=== PATIENT | female | born 1980 | race Caucasian/White ===

== ENCOUNTER → 2017-10-23 21:37 | Outpatient (CLI) | payer OTHER, SELFPAY ==
[2017-10-23 21:40] LABS: Bacteria 0 SEEN /hpf (None Seen); Mucous, Urine 0 SEEN /hpf (<or=2+); Red Blood Cells-Urine 0 SEEN /hpf (0-5)
[2017-10-23 22:21] LABS: Color, Urine Yellow (Yellow); Glucose, Dipstick Normal (Normal); Ketone-Dipstick Negative (Negative); Leukocyte Esterase-Dipstick 100 /ul (Negative); Nitrite-Dipstick Negative (Negative); Occult Blood-Urine 150 /ul (Negative); Protein-Dipstick 30 mg/dl (Negative); Specific Gravity, Urine 1.015 (1.002-1.030); Urine Bilirubin Dipstick Negative (Negative); Urine Clarity Sl. Cloudy (Clear); Urine Urobilinogen Normal (Normal)
[2017-10-23 22:35] LABS: White Blood Cells 25-50 SEEN /hpf (0-5)
[2017-10-23 22:36] LABS: Squamous Epithelial Cells - UA 0-5 SEEN /hpf (5-10)
== END ==
PROVIDERS: Visit Provider Physician Assistant Surgical
DX: R30.0 Dysuria (principal)
CPT/HCPCS: 81001; 87077; 87086; 87088; 87186

== ENCOUNTER → 2018-02-15 13:30 | Outpatient (CLI) | payer OTHER, SELFPAY ==
--- NOTE | 2018-02-15 13:30 | DT_ITS ---
This patient was seen during an EMR downtime February 12, 2018 - February 19, 2018. This patient may have a combination of paper and electronic documentation or all paper documentation. All documentation is viewable within the e-chart portion of [facility] for each patient visit.
[2018-02-28 10:31] LABS: HPV Reflexed? NOT INDICATED
== END ==
PROVIDERS: Visit Provider Obstetrics & Gynecology
DX: Z12.4 Encounter for screening for malignant neoplasm of cervix (principal)
CPT/HCPCS: 88175; G0145

== ENCOUNTER 2018-06-19 17:35 | Emergency (ER) | payer OTHER, SELFPAY ==
[2018-06-19 17:37] VITALS: BP 129/81; PULSE 74; RESP 16; TEMP 37; O2SAT 98; BMI 33.3
--- NOTE | 2018-06-19 17:50 | RAD_ITS ---
STUDY: X-RAY - CERVICAL SPINE REASON FOR EXAM: Female, 38 years old. Trauma TECHNIQUE: 3 view(s) of the cervical spine were obtained. COMPARISON: None FINDINGS: Normal anterior atlantoaxial articulation. Normal odontoid process. Normal cervical lordosis. Normal vertebral bodies and endplates. Normal disc space heights. Normal visualized intervertebral neuroforamina. The soft tissue structures are unremarkable. RAD/Cerv Spine 2 or 3 Views IMPRESSION: Normal x-ray examination of the visualized cervical spine. Electronically Signed: Anjum Reyes MD at 18:18 EDT , Service support ,
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
[2018-06-19 19:25] VITALS: BP 122/80; PULSE 78; RESP 16; O2SAT 99
== END 2018-06-19 19:26 | disposition home or self-care (01) ==
PROVIDERS: Emergency Provider Emergency Medicine; Family Provider Family Medicine; PCP Family Medicine
DX: S16.1XXA Strain of muscle, fascia and tendon at neck level, initial encounter (principal); Y04.2XXA Assault by strike against or bumped into by another person, initial encounter; Y93.9 Activity, unspecified; Y92.119 Unspecified place in children's home and orphanage as the place of occurrence of the external cause; Y99.0 Civilian activity done for income or pay
CPT/HCPCS: 72040; 99282

== ENCOUNTER 2018-11-30 22:37 | Emergency (ER) | payer OTHER, SELFPAY ==
[2018-11-30 22:37] VITALS: BP 165/107; PULSE 69; RESP 16; TEMP 36.6; O2SAT 100; BMI 36.8
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
--- NOTE | 2018-11-30 23:04 | ED.DEP ---
ED Disposition - Plan for ED Patient: Instructions: ED Sprain Wrist Prescriptions: Naproxen [Naprosyn] 500 mg PO BID PRN #20 tab Ref[facility]: [facility] Care [facility] - 3-5 Days
--- NOTE | 2018-11-30 23:07 | DCINST.ED_ITS ---
ED Disposition - Plan for ED Patient: Instructions: ED Sprain Wrist Prescriptions: Naproxen [Naprosyn] 500 mg PO BID PRN #20 tab Referrals: [facility] [Primary Care Provider[facility] - 3-5 Days
--- NOTE | 2018-11-30 23:15 | RAD_ITS ---
HISTORY: lateral left wrist pain after lifting a lot today EXAM/TECHNIQUE: XR Wrist Min 3 Views: Left. COMPARISON: None. FINDINGS: # of images incl. paperwork: 3 No fracture or dislocation. Alignment anatomic. Normal bony mineralization. No significant degenerative changes. Soft tissues unremarkable. RAD/Wrist min 3 Views IMPRESSION: Intact left wrist. at 1419 Reported and signed by: Anjum Velasquez MD Electronically Signed: Anjum Velasquez, at 23:56 EDT Tel , Service support ,
[2018-12-01 00:33] VITALS: BP 123/83; PULSE 87; RESP 16; O2SAT 98
== END 2018-12-01 00:57 | disposition home or self-care (01) ==
LOC: ED 23:21
PROVIDERS: Emergency Provider Emergency Medicine; Family Provider Family Medicine; PCP Family Medicine
DX: S63.502A Unspecified sprain of left wrist, initial encounter (principal); Y04.8XXA Assault by other bodily force, initial encounter; Y93.9 Activity, unspecified; Y92.119 Unspecified place in children's home and orphanage as the place of occurrence of the external cause; Y99.0 Civilian activity done for income or pay
CPT/HCPCS: 73110; 99282

== ENCOUNTER 2019-07-04 22:27 | Emergency (ER) | payer OTHER, SELFPAY ==
[2019-07-04 22:28] VITALS: BP 163/87; PULSE 67; RESP 18; TEMP 36.8; O2SAT 97; BMI 37.3
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
--- NOTE | 2019-07-04 23:05 | DCINST.ED_ITS ---
ED Disposition - Plan for ED Patient: Instructions: CONTUSION, Upper Extremity Referrals: Arielle Ivey MD [Primary Care Provider] - [facility] [GROUP OF PHYSICIANS] -
--- NOTE | 2019-07-04 23:05 | ED.DEP ---
ED Disposition - Plan for ED Patient: Instructions: CONTUSION, Upper Extremity Referrals: Arielle Ivey MD [Primary Care Provider] - [facility] [GROUP OF PHYSICIANS] -
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
[2019-07-04] MEDS: Naproxen 500 MG Tablet PO (23:20)
== END 2019-07-04 23:23 | disposition home or self-care (01) ==
LOC: ED 23:04
PROVIDERS: Emergency Provider Emergency Medicine; Family Provider Family Medicine; PCP Family Medicine
DX: S50.01XA Contusion of right elbow, initial encounter (principal); W22.8XXA Striking against or struck by other objects, initial encounter; Y93.89 Activity, other specified; Y92.89 Other specified places as the place of occurrence of the external cause; Y99.0 Civilian activity done for income or pay
CPT/HCPCS: 73080; 99283

== ENCOUNTER → 2020-10-01 | Outpatient (CLI) | payer OTHER, SELFPAY ==
[2020-10-09 13:52] LABS: HPV APTIMA, High Risk Negative (Negative)
[2020-10-09 14:22] LABS: HPV Reflexed? YES, CHARGE PATIENT
== END | disposition home or self-care (01) ==
LOC: LABSPEC 11:57
PROVIDERS: PCP Family Medicine; Visit Provider Obstetrics & Gynecology
DX: Z12.4 Encounter for screening for malignant neoplasm of cervix (principal)
CPT/HCPCS: 87624; 88175; G0145

== ENCOUNTER → 2022-02-02 | Outpatient (CLI) | payer OTHER, SELFPAY ==
[2022-02-09 09:07] LABS: HPV Reflexed? NOT INDICATED
== END | disposition home or self-care (01) ==
LOC: LABSPEC 14:00
PROVIDERS: PCP Family Medicine; Referring Provider Obstetrics & Gynecology; Visit Provider Obstetrics & Gynecology
DX: Z12.4 Encounter for screening for malignant neoplasm of cervix (principal)
CPT/HCPCS: 88175; G0145

== ENCOUNTER → 2022-02-24 | Outpatient (CLI) | payer OTHER, SELFPAY ==
--- NOTE | 2022-02-24 10:02 | BI_ITS ---
MAMMOGRAPHY - BILATERAL SCREENING REASON FOR EXAM: Female, 41 years old. Routine annual screening examination. PERTINENT HISTORY: Non-contributory. TECHNIQUE: Digital bilateral breast mitesh (3D mammographic acquisition) in the CC and MLO projections. 2-D mediolateral oblique (MLO) and craniocaudad (CC) views of both breasts were obtained. CAD: Full Field Digital Mammography with Computer Added Detection was performed. COMPARISON: None. Baseline examination. FINDINGS: Breast Composition: The breasts are almost entirely fatty. There are no dominant masses or suspicious calcifications. Small benign-appearing bilateral axillary lymph nodes. No other significant abnormalities are identified. BI/SCRN MAMM (CAD)W/MITESH BILAT IMPRESSION: Negative screening mammogram. Yearly followup mammogram recommended. (A) ASSESSMENT CATEGORY: BIRADS Category 2: Benign. A letter regarding these results will be sent to the patient by the facility within 30 days. Approximately 10% of breast cancers are not detected by mammography. A normal mammogram should not delay biopsy of a clinically suspicious abnormality. [id number] Electronically Signed: Maurice Emanuel MD at 11:12 EDT ,
== END | disposition home or self-care (01) ==
LOC: OPBI 10:00
PROVIDERS: PCP Family Medicine; Visit Provider Obstetrics & Gynecology
DX: Z12.31 Encounter for screening mammogram for malignant neoplasm of breast (principal)
CPT/HCPCS: 77063; 77067